=== PATIENT | male | born 1960 | race Caucasian/White ===

== ENCOUNTER 2020-05-01 10:29 | Observation (INO) | payer BC, OTHER ==
[~2020-05-01] VITALS: Ht 182.9 cm; Wt 98.9 kg
[2020-05-01 12:41] LABS: HEMOGLOBIN 16.2 gm/dl (14.0-17.5); RED BLOOD COUNT 5.37 M/UL (4.20-5.50)
[2020-05-01 13:07] LABS: BUN/CREATININE RATIO 21 (0-10)
[2020-05-02 01:55] LABS: HEMOGLOBIN 14.4 gm/dl (14.0-17.5); WHITE BLOOD COUNT 9.6 K/UL (4.5-11.0)
[2020-05-02 01:59] LABS: RED BLOOD COUNT 4.83 M/UL (4.20-5.50)
[2020-05-02 02:22] LABS: BUN/CREATININE RATIO 23 (0-10)
[2020-05-02] MEDS ORDERED: LOPRESSOR 25 MG25 MG PO (08:30)
[2020-05-02] MEDS ORDERED: JARDIANCE10 MG PO (08:30)
[2020-05-02] MEDS ORDERED: ASPIRIN EC81 MG PO (08:30)
[2020-05-02] MEDS ORDERED: METFORMIN HCL850 MG PO (08:30)
[2020-05-02] MEDS ORDERED: LIPITOR40 MG PO (08:39)
== END 2020-05-02 12:05 | disposition home or self-care (01) ==
LOC: ER1 10:29 → PROG CARE 15:11 → CDU 15:11 → PROG CARE 18:15
PROVIDERS: Nurse Practitioner; Physician Assistant Medical; ADMIT Internal Medicine
DX: I48.91 Unspecified atrial fibrillation (principal); R73.9 Hyperglycemia, unspecified; D69.6 Thrombocytopenia, unspecified; Z83.3 Family history of diabetes mellitus; Z79.82 Long term (current) use of aspirin; Z79.84 Long term (current) use of oral hypoglycemic drugs; Z79.899 Other long term (current) drug therapy; Z20.822 Contact with and (suspected) exposure to COVID-19
CPT/HCPCS: ECHO; 0240U; 36415; 71045; 80048; 80053; 82550; 82553; 82962; 83036; 83735; 83874; 84439; 84443; 84484; 85025; 85027; 85610; 85730; 93005; 93306; 96374; 99285; G0378